=== PATIENT | female | born 1965 | race Asian ===

== ENCOUNTER 2018-08-01 08:02 | Day surgery (SDC) | payer OTHER ==
[~2018-08-01 08:02] MED LIST: AMOX500C25 PO
[2018-08-01] MEDS ORDERED: HYDR-3298 PO (08:49)
[2018-08-01] MEDS ORDERED: LIDOCAINE 2% 100 MG/5 ML UJET TP ONE (10:12)
[2018-08-01] MEDS ORDERED: KETOROLAC 30 MG/ML VIAL ONE (10:12)
== END 2018-08-01 11:00 | disposition home or self-care (01) ==
LOC: MOR 08:02 → MMU 08:03 → MOR 11:00
PROVIDERS: ATTEND Internal Medicine Gastroenterology
DX: Z12.11 Encounter for screening for malignant neoplasm of colon (principal); D12.3 Benign neoplasm of transverse colon; I10 Essential (primary) hypertension; Z79.899 Other long term (current) drug therapy; Z79.2 Long term (current) use of antibiotics
CPT/HCPCS: 45385; 81025; J1885